=== PATIENT | male | born 1980 | race Caucasian/White ===

== ENCOUNTER 2018-03-10 09:52 | Emergency (ER) | payer SELFPAY ==
[2018-03-10] MEDS ORDERED: IPRATROPIUM/ALBUTEROL SULFATE 3 ML SOLUTION IH ONE (10:30)
[2018-03-10] MEDS ORDERED: METHYLPREDNISOLONE SOD SUCC 125MG/2ML VIAL ONE ×2 (10:39→10:41)
[2018-03-10 10:42] LABS: APPEARANCE,URINE Clear (CLEAR); BILIRUBIN,URINE Negative (NEGATIVE); COLOR,URINE Yellow (YELLOW); GLUCOSE, URINE (UA) Negative (NEGATIVE); KETONES,URINE Negative (NEGATIVE); LEUKOCYTE ESTERASE ,URINE Negative (NEGATIVE); NITRATE,URINE Negative (NEGATIVE); OCCULT BLOOD,URINE Negative (NEGATIVE); PROTEIN,URINE Negative (NEGATIVE); UROBILINOGEN,URINE 0.2 mg/dL (0.2-1.0)
[2018-03-10 10:43] LABS: BASOPHILS % (AUTO) 0.4 % (0.0-5.0); EOSINOPHILS % (AUTO) 1.6 % (0.0-8.0); HEMATOCRIT 38.9 % (42-54); LYMPHOCYTES % (AUTO) 15.3 % (21.0-51.0); MEAN CORPUSCULAR HEMOGLOBIN 30.7 pg (27.0-33.0); MEAN CORPUSCULAR HGB CONC 35.5 g/dL (32.0-36.0); MEAN CORPUSCULAR VOLUME 86.4 fL (79-99); MONOCYTES % (AUTO) 8.9 % (3.0-13.0); NEUTROPHILS % (AUTO) 73.8 % (40.0-77.0); PLATELET COUNT (AUTO) 256 K/uL (130-400); RED CELL DISTRIBUTION WIDTH 12.6 % (11.0-15.5); WHITE BLOOD COUNT (AUTO) 12.8 K/uL (4.8-10.8)
[2018-03-10 10:49] LABS: CREATININE 0.8 mg/dL (0.5-1.5)
[2018-03-10 10:51] LABS: RAPID GROUP A STREP NEGATIVE (NEGATIVE)
[2018-03-10 10:54] LABS: ALBUMIN 4.1 g/dL (3.5-5.0); BILIRUBIN,DIRECT 0.1 mg/dL (0.0-0.3); BILIRUBIN,TOTAL 0.6 mg/dL (0.2-1.0); TOTAL PROTEIN, SERUM 7.8 g/dL (6.0-8.3)
== END 2018-03-10 11:56 | disposition home or self-care (01) ==
LOC: EDH 09:52
DX: J18.9 Pneumonia, unspecified organism (principal); I10 Essential (primary) hypertension; I48.91 Unspecified atrial fibrillation; Z88.1 Allergy status to other antibiotic agents
CPT/HCPCS: 36415; 71046; 80048; 80076; 81003; 85025; 87804 ×2; 87880; 94640; 96372; 99285; J2930 ×2

== ENCOUNTER 2018-03-12 23:58 | Emergency (ER) | payer SELFPAY ==
[2018-03-13] MEDS ORDERED: DEXAMETHASONE SOD PHOSPHATE 10MG/ML 1ML VIAL ONE (01:39)
[2018-03-13] MEDS ORDERED: KETOROLAC TROMETHAMINE 60 MG/2 ML VIAL ONE (01:39)
== END 2018-03-13 02:30 | disposition home or self-care (01) ==
LOC: EDH 23:58
DX: J02.8 Acute pharyngitis due to other specified organisms (principal); B97.89 Other viral agents as the cause of diseases classified elsewhere; I10 Essential (primary) hypertension; I48.91 Unspecified atrial fibrillation; Z88.1 Allergy status to other antibiotic agents
CPT/HCPCS: 96372 ×2; 99284; J1100; J1885

== ENCOUNTER 2018-03-16 21:10 | Emergency (ER) | payer SELFPAY ==
[2018-03-16] MEDS ORDERED: KETOROLAC TROMETHAMINE 60 MG/2 ML VIAL ONE (22:21)
[2018-03-16] MEDS ORDERED: DEXAMETHASONE SOD PHOSPHATE 10MG/ML 1ML VIAL ONE (22:21)
== END 2018-03-16 22:40 | disposition home or self-care (01) ==
LOC: EDH 21:10
DX: J02.9 Acute pharyngitis, unspecified (principal); I10 Essential (primary) hypertension; I48.91 Unspecified atrial fibrillation; Z88.1 Allergy status to other antibiotic agents
CPT/HCPCS: 96372 ×2; 99284; J1100; J1885

== ENCOUNTER 2020-02-11 19:24 | Emergency (ER) | payer MEDICAID | END 2020-02-11 20:18 | disposition home or self-care (01) | LOC: EDH 19:24 | DX: R05 Cough (principal); I10 Essential (primary) hypertension; I48.91 Unspecified atrial fibrillation; Z72.0 Tobacco use; Z88.5 Allergy status to narcotic agent | CPT/HCPCS: 99281 ==

== ENCOUNTER 2021-05-26 05:27 | Emergency (ER) | payer MEDICAID ==
[~2021-05-26] VITALS: Ht 185.4 cm; Wt 123.4 kg
[2021-05-26 05:34] VITALS: BP 140/100
[2021-05-26] MEDS ORDERED: IVER3TAB PO (08:23)
[2021-05-26] MEDS ORDERED: AZIT500T2 PO (08:23)
== END 2021-05-26 08:48 | disposition home or self-care (01) ==
LOC: EDH 05:27
DX: U07.1 COVID-19 (principal); J20.8 Acute bronchitis due to other specified organisms; I10 Essential (primary) hypertension; E66.9 Obesity, unspecified; Z88.0 Allergy status to penicillin
CPT/HCPCS: 71045; 87635; C9803